=== PATIENT | female | born 1935 | race Caucasian/White ===

== ENCOUNTER 2021-05-21 18:31 | Emergency (ER) | payer MEDICARE ==
[2021-05-21] MEDS ORDERED: Lorazepam 2 MG/ML VIAL ONE (18:45)
[2021-05-21 19:07] LABS: Hemoglobin 11.6 g/dL (12.0-15.5); Mean Corpuscular Hemoglobin 29.1 pg (27.0-33.0); Mean Platelet Volume 10.6 fl (7.4-10.4); Platelet Count 259 10x3/uL (150-450); RBC Distribution Width 16.2 % (11.5-14.5); Red Blood Cell (RBC) Count 3.99 10x6/uL (3.90-5.03); White Blood Cell (WBC) Count 38.3 10x3/uL (3.5-10.5)
[2021-05-21 19:13] LABS: PTT Less than 20.0 sec (22.0-33.0); Prothrombin Time 10.9 sec (9.5-12.1)
[2021-05-21 19:16] LABS: ALT (SGPT) 38 U/L (8-55); AST (SGOT) 33 U/L (5-34); Albumin 3.4 g/dL (3.4-4.8); Alkaline Phosphatase 332 U/L (40-110); Anion Gap 22 mmol/L (10-20); BUN (Urea Nitrogen) 58 mg/dL (9.8-20.1); Bilirubin, Total 0.7 mg/dL (0.2-1.2); CK (CPK) 45 U/L (29-168); Calc. Creatinine Clearance 0 mL/min (70-130); Calcium 9.4 mg/dL (7.8-10.44); Carbon Dioxide 15 mmol/L (23-31); Chloride 98 mmol/L (98-107); Globulin 2.4 g/dL (2.4-3.5); Glucose 383 mg/dL (83-110); Potassium 5.8 mmol/L (3.5-5.1); Protein, Total 5.8 g/dL (5.8-8.1); Sodium 129 mmol/L (136-145)
[2021-05-21 19:34] LABS: Bilirubin Neg (Negative); Blood, Urine 10 (Negative); Clarity Clear (Clear); Glucose, Urine (Dipstick) >=1000 mg/dL (Negative); Ketone, Urine Negative (Negative); Leukocyte 25 (Negative); Nitrite Negative (Negative); Protein, Urine (Dipstick) 15 mg/dl (Neg-Trace); Specific Gravity, Urine 1.015 (1.002-1.036); Urobilinogen Normal mg/dL (Less than 2)
[2021-05-21 19:44] LABS: Bacteria/HPF None Seen HPF (None Seen); Mucous/LPF None Seen LPF (<2+); RBC/HPF 0-3 HPF (0-3); Renal Epithelial 0-3 HPF (None Seen); Transitional Epithelial 0-3 HPF (None Seen); WBC/HPF 0-3 HPF (0-3)
[2021-05-21 19:54] LABS: Band 9 % (5-11); Lymphocytes 8 % (21-51); Monocytes 4 % (0-10); Myelocyte 1 % (0-0)
[2021-05-21 19:57] LABS: Anisocytosis MODERATE=16-30 cells (100X) (0-5/hpf); Macrocytosis SLIGHT = 6-15 cells (100X) (0-5/hpf); Microcytosis SLIGHT = 6-15 cells (100X) (0-5/hpf); Neutrophil 78 % (42-75)
[2021-05-21 20:00] LABS: Burr Cells SLIGHT = 2-5 cells (100X) (0-1/hpf); Poikilocytosis SLIGHT = 6-15 cells (100X) (0-5/hpf)
[2021-05-21 20:02] LABS: Large Platelets SLIGHT; Ovalocytes SLIGHT = 2-5 cells (100X) (0-1/hpf); Platelet Clumps MODERATE; Platelet Morphology Comment Appears Adequate
[2021-05-21 20:03] LABS: Hypersemented Neutrophil SLIGHT
[2021-05-21 20:04] LABS: MDiff Complete? YES
[2021-05-21] MEDS ORDERED: Haloperidol Lactate 5 MG/ML VIAL ONE (20:07)
[2021-05-21] MEDS ORDERED: Cefepime 2 GM VIAL ONE (20:09)
[2021-05-21] MEDS ORDERED: Dexamethasone 10 MG/ML VIAL ONE (20:51)
[2021-05-21 21:23] LABS: SARS-CoV-2 NAA Rapid Test Not Detected (NotDetected)
[2021-05-21 21:59] LABS: Lactic Acid 3.2 mmol/L (0.5-2.2)
== END 2021-05-21 23:03 | disposition short-term general hospital (02) ==
LOC: CSHERS 18:31
DX: A41.9 Sepsis, unspecified organism (principal); E86.0 Dehydration; D72.829 Elevated white blood cell count, unspecified; R41.82 Altered mental status, unspecified; R74.02 Elevation of levels of lactic acid dehydrogenase [LDH]; C34.90 Malignant neoplasm of unspecified part of unspecified bronchus or lung; C79.51 Secondary malignant neoplasm of bone; C79.31 Secondary malignant neoplasm of brain; I10 Essential (primary) hypertension; E03.9 Hypothyroidism, unspecified; E78.5 Hyperlipidemia, unspecified; M10.9 Gout, unspecified; Z20.822 Contact with and (suspected) exposure to COVID-19; Z79.82 Long term (current) use of aspirin; Z79.899 Other long term (current) drug therapy
CPT/HCPCS: 36415; 36416; 70450; 71045; 80053; 81003; 81015; 82550; 83605; 84443; 84484; 85025; 85610; 85730; 87040; 87086; 93005; J0692; J1100; J1630; J2060; J3370; U0002